=== PATIENT | male | born 2000 | race Caucasian/White ===

== ENCOUNTER 2024-04-04 16:27 | Inpatient (IN) | payer BC, SELFPAY ==
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
[2024-04-04 17:33] VITALS: BP 106/77; PULSE 89; RESP 18; TEMP 36.8; O2SAT 99; BMI 18.9
[2024-04-04 17:34] VITALS: BP 106/77; PULSE 89; RESP 16; TEMP 36.8; O2SAT 99
[2024-04-04] MEDS: Acetaminophen 500 MG Tablet 1000 MG PO (21:19)
[2024-04-05 06:00] VITALS: BP 111/66; PULSE 77; RESP 16; TEMP 36.4; O2SAT 99
[2024-04-05 06:18] VITALS: BMI 18.8
[2024-04-05] MEDS: Acetaminophen 500 MG Tablet 1000 MG PO ×3 (06:21→21:40)
[2024-04-05] MEDS: oxyCODONE 5 MG Tablet PO (06:22)
[2024-04-05 07:07] VITALS: O2SAT 99
[2024-04-05] MEDS: buPROPion (XL) 300 MG TABLET.XL PO (08:37)
[2024-04-05] MEDS: Lidocaine 5% Patch 2 PATCH TOPICAL (08:37)
--- NOTE | 2024-04-05 16:26 | CASEMGMT ---
Social Work- SW met with pt to complete initial assessment. Introduced self and role. Verified/updated contacts. Pt declines having advanced directives. Pt's goal is to return home. SW will continue to follow for DC planning. ALAINA Meyer
[2024-04-05] MEDS: Ensure Plus High Protein 120 ML LIQUID PO ×2 (17:09→21:40)
[2024-04-05 17:34] VITALS: BP 114/70; PULSE 69; RESP 16; TEMP 36.4; O2SAT 100
[2024-04-05] MEDS: Enoxaparin 30 MG/0.3 ML Syringe SC (21:41)
[2024-04-06 06:04] VITALS: BP 103/63; PULSE 75; RESP 15; TEMP 36; O2SAT 98
[2024-04-06] MEDS: oxyCODONE 5 MG Tablet PO (06:52)
[2024-04-06] MEDS: Acetaminophen 500 MG Tablet 1000 MG PO ×3 (06:52→22:11)
[2024-04-06] MEDS: Ensure Plus High Protein 120 ML LIQUID PO ×4 (08:13→22:14)
[2024-04-06] MEDS: buPROPion (XL) 300 MG TABLET.XL PO (08:14)
[2024-04-06 10:02] VITALS: O2SAT 100
[2024-04-06] MEDS: Lidocaine 5% Patch 2 PATCH TOPICAL (10:44)
[2024-04-06] MEDS: Enoxaparin 40 MG/0.4 ML Syringe SC (10:44)
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
[2024-04-06 12:17] VITALS: BP 107/76; BP 113/68; BP 120/69; PULSE 104; PULSE 125; PULSE 91
--- NOTE | 2024-04-06 13:23 | CASEMGMT ---
Social Work IDT met with patient and mother for Team meeting. Discussed patient's progress in PT/OT/SN. Educated to [facility] insurance with [employer] 04/10 and continued stay is not guaranteed with each review and has no advanced notice. Pt's goal is for pt to return home living with parents. 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 Father owns construction business and can adjust schedule. Pt's GF lives with them and can assist. Pt's aunt lives in [place] but is a retired nurse and offered to come to [facility] and assist at DC. Mother stated she has access to walkers, w/c's and hospital beds, if pt has those needs. SW will assist with any other needs at DC. Will continue to follow for DC planning. Will ReTeam weekly. NATALY FloresW
[2024-04-06 18:00] VITALS: BP 121/75; PULSE 84; RESP 17; TEMP 36.9; O2SAT 99
[2024-04-06] MEDS: APIXABAN 2.5 MG TABLET (WCH) PO (22:11)
[2024-04-07 06:00] VITALS: BP 95/62; PULSE 78; RESP 18; TEMP 36.2; O2SAT 98
[2024-04-07] MEDS: Acetaminophen 500 MG Tablet 1000 MG PO ×3 (06:50→20:43)
[2024-04-07] MEDS: oxyCODONE 5 MG Tablet PO (06:51)
[2024-04-07 07:03] LABS: Hematocrit 32.1 % (40-54); Hemoglobin 10.5 g/dL (13.0-16.5); Mean Corp Hgb Conc 32.7 g/dL (32-36); Mean Corpuscular Hgb 28.8 pg (27.0-32.0); Mean Corpuscular Volume 88.2 fL (80-94); Mean Platelet Vol. 8.2 fl (6.2-12.0); Platelet Count 423 K/mm3 (150-450); RBC Distribution Width CV 12.8 % (11.6-14.6); RBC Distribution Width SD 40.1 fl (35.1-43.9); Red Blood Count 3.64 M/mm3 (4.6-6.2); White Blood Count 7.5 K/mm3 (4.4-11.0)
[2024-04-07 07:36] LABS: ALB/GLOB Ratio 0.9 RATIO (0.9-2.4); AST(SGOT) 28 U/L (15-37); Alanine Aminotransfer ALT/SGPT 46 U/L (16-61); Albumin, Serum 3.3 g/dL (3.2-5.0); Alkaline Phosphatase 111 U/L (45-117); Anion Gap 7 (5-15); BUN 20 mg/dL (7-18); BUN/Creat Ratio 31.4 RATIO (10-20); Calcium,Total 9.5 mg/dL (8.5-10.1); Chloride 104 mmol/L (98-107); Creatinine, Serum 0.64 mg/dL (0.70-1.30); EST Glomerular Filtration Rate 165 mL/min (>60); Est Glom Filt Rate - Afr Amer 200 mL/min (>60); Globulin 3.8 g/dL (2.2-4.2); Glucose 99 mg/dL (74-106); Magnesium 2.1 mg/dL (1.6-2.6); Phosphorus 4.2 mg/dL (2.5-4.9); Potassium 4.1 mmol/L (3.5-5.1); Protein, Total 7.1 g/dL (6.4-8.2); Sodium Level 138 mmol/L (136-145)
[2024-04-07] MEDS: APIXABAN 2.5 MG TABLET (WCH) PO ×2 (08:34→20:43)
[2024-04-07] MEDS: Ensure Plus High Protein 120 ML LIQUID PO ×4 (08:34→20:43)
[2024-04-07] MEDS: Lidocaine 5% Patch 2 PATCH TOPICAL (08:35)
[2024-04-07] MEDS: buPROPion (XL) 300 MG TABLET.XL PO (08:36)
[2024-04-07 17:28] VITALS: BP 122/71; PULSE 83; RESP 17; TEMP 36.3; O2SAT 99
[2024-04-08 06:00] VITALS: BP 100/58; PULSE 79; RESP 18; TEMP 36.7; O2SAT 98
[2024-04-08] MEDS: Acetaminophen 500 MG Tablet 1000 MG PO ×3 (06:25→21:01)
[2024-04-08] MEDS: oxyCODONE 5 MG Tablet PO (06:25)
[2024-04-08] MEDS: Lidocaine 5% Patch 2 PATCH TOPICAL (08:51)
[2024-04-08] MEDS: buPROPion (XL) 300 MG TABLET.XL PO (08:52)
[2024-04-08] MEDS: Ensure Plus High Protein 120 ML LIQUID PO ×4 (08:53→21:04)
[2024-04-08] MEDS: APIXABAN 2.5 MG TABLET (WCH) PO ×2 (08:53→21:01)
[2024-04-08 09:13] VITALS: O2SAT 97
[2024-04-08 17:43] VITALS: BP 106/60; PULSE 84; RESP 16; TEMP 36.4; O2SAT 98
--- NOTE | 2024-04-09 03:08 | NURSING ---
Reviewed and agree with Bernabe HART, documentation and assessment charting.
[2024-04-09 05:17] VITALS: BP 100/63; PULSE 75; RESP 16; TEMP 37.1; O2SAT 98
[2024-04-09] MEDS: Acetaminophen 500 MG Tablet 1000 MG PO ×3 (05:19→21:08)
[2024-04-09] MEDS: oxyCODONE 5 MG Tablet PO (06:02)
[2024-04-09] MEDS: Lidocaine 5% Patch 2 PATCH TOPICAL (08:18)
[2024-04-09] MEDS: APIXABAN 2.5 MG TABLET (WCH) PO ×2 (08:22→20:38)
[2024-04-09] MEDS: buPROPion (XL) 300 MG TABLET.XL PO (08:22)
[2024-04-09] MEDS: Ensure Plus High Protein 120 ML LIQUID PO ×4 (08:23→20:39)
[2024-04-09 18:00] VITALS: BP 102/58; PULSE 80; RESP 16; TEMP 37.2; O2SAT 99
[2024-04-09 22:00] VITALS: PULSE 64; RESP 16; O2SAT 97
[2024-04-10 06:48] VITALS: BP 114/62; PULSE 74; RESP 16; TEMP 36.5; O2SAT 100
[2024-04-10] MEDS: Acetaminophen 500 MG Tablet 1000 MG PO ×3 (06:51→20:57)
[2024-04-10] MEDS: oxyCODONE 5 MG Tablet PO (06:51)
[2024-04-10] MEDS: buPROPion (XL) 300 MG TABLET.XL PO (07:55)
[2024-04-10] MEDS: Lidocaine 5% Patch 2 PATCH TOPICAL (07:55)
[2024-04-10] MEDS: APIXABAN 2.5 MG TABLET (WCH) PO ×2 (07:55→20:57)
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
[2024-04-10] MEDS: Ensure Plus High Protein 120 ML LIQUID PO ×2 (14:01→16:59)
--- NOTE | 2024-04-10 15:24 | CASEMGMT ---
Addendum entered by Linette Angela 04/11/24 10:49: [facility] confirmed they can accept pt. Original Note: Social Work SW phoned mother to discuss DC plans. Explained pt has f/u appt with surgeon on 04/18 and pt needs to be DCd to attend that appt. Pt is making good progress and IDT offered to set DC date prior to appt, or to reschedule appt. Mother agrees to set DC date and selected 04/16. Mother confirmed all DME will be in place for pt use at home. SW offered HHC vs OP therapy. Mother prefers HHC and to use the agency she works for - [facility] [employer]. Mother provided PCP - pt will be new. SW updated in EMR. family to transport at DC. No other needs noted. Will Team . LEXI sent referral via [facility] to [facility] for PT/OT Plan: DC home with family 04/16, [facility] PT/OT NATALY FloresW
[2024-04-10 18:00] VITALS: BP 106/67; PULSE 81; RESP 16; TEMP 36.8; O2SAT 99
[2024-04-11 06:00] VITALS: BP 105/58; PULSE 76; RESP 16; TEMP 37.3; O2SAT 98
[2024-04-11] MEDS: oxyCODONE 5 MG Tablet PO (06:45)
[2024-04-11] MEDS: Acetaminophen 500 MG Tablet 1000 MG PO ×3 (06:45→21:20)
[2024-04-11] MEDS: APIXABAN 2.5 MG TABLET (WCH) PO ×2 (08:28→21:20)
[2024-04-11] MEDS: Ensure Plus High Protein 120 ML LIQUID PO ×4 (08:28→21:20)
[2024-04-11] MEDS: Lidocaine 5% Patch 2 PATCH TOPICAL (08:28)
[2024-04-11] MEDS: buPROPion (XL) 300 MG TABLET.XL PO (08:28)
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
[2024-04-11 18:00] VITALS: BP 111/62; PULSE 76; RESP 15; TEMP 37.1; O2SAT 97
--- NOTE | 2024-04-12 04:13 | NURSING ---
Reviewed and agree with Tierra HART, documentation and assessment charting.
[2024-04-12 06:00] VITALS: BP 108/69; PULSE 74; RESP 16; TEMP 36.7; O2SAT 98; BMI 18.5
[2024-04-12] MEDS: oxyCODONE 5 MG Tablet PO (06:52)
[2024-04-12] MEDS: Acetaminophen 500 MG Tablet 1000 MG PO ×3 (06:52→20:32)
[2024-04-12] MEDS: buPROPion (XL) 300 MG TABLET.XL PO (10:40)
[2024-04-12] MEDS: APIXABAN 2.5 MG TABLET (WCH) PO ×2 (10:40→20:34)
[2024-04-12] MEDS: Lidocaine 5% Patch 2 PATCH TOPICAL (10:40)
[2024-04-12 17:41] VITALS: BP 105/61; PULSE 78; RESP 17; TEMP 36.9; O2SAT 98
[2024-04-12 20:00] VITALS: PULSE 78; RESP 17; O2SAT 98
[2024-04-12] MEDS: Senna/Docusate Sodium 1 Tablet 2 TABLET PO (20:33)
[2024-04-12] MEDS: Ensure Plus High Protein 120 ML LIQUID PO (20:34)
[2024-04-13] MEDS: Acetaminophen 500 MG Tablet 1000 MG PO ×3 (05:36→21:32)
[2024-04-13 05:46] VITALS: BP 97/60; PULSE 77; RESP 16; TEMP 36.6; O2SAT 98
[2024-04-13] MEDS: oxyCODONE 5 MG Tablet PO (07:04)
[2024-04-13] MEDS: Lidocaine 5% Patch 2 PATCH TOPICAL (09:34)
[2024-04-13] MEDS: APIXABAN 2.5 MG TABLET (WCH) PO ×2 (09:34→21:32)
[2024-04-13] MEDS: buPROPion (XL) 300 MG TABLET.XL PO (09:34)
--- NOTE | 2024-04-13 13:14 | CASEMGMT ---
Social Work IDT met with patient and mother for Team meeting. Discussed patient's progress in PT/OT/SN. Confirmed DC home 04/16 with [facility] PT/OT. Family has secured all needed DME. Mother to transport. No other needs noted. Linette Angela, REAL ESTATE LAWYER VP [employer]
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
[2024-04-13 17:24] VITALS: BP 105/64; PULSE 70; RESP 18; TEMP 36.6; O2SAT 99
[2024-04-13] MEDS: Ensure Plus High Protein 120 ML LIQUID PO (21:33)
[2024-04-14 06:00] VITALS: BP 103/54; PULSE 74; RESP 18; TEMP 36.7; O2SAT 99
[2024-04-14 06:21] LABS: Hematocrit 34.2 % (40-54); Mean Corp Hgb Conc 32.2 g/dL (32-36); Mean Corpuscular Hgb 29.1 pg (27.0-32.0); Mean Corpuscular Volume 90.5 fL (80-94); Mean Platelet Vol. 8.6 fl (6.2-12.0); Platelet Count 504 K/mm3 (150-450); RBC Distribution Width CV 13.1 % (11.6-14.6); Red Blood Count 3.78 M/mm3 (4.6-6.2); White Blood Count 5.7 K/mm3 (4.4-11.0)
[2024-04-14] MEDS: Acetaminophen 500 MG Tablet 1000 MG PO ×3 (06:46→21:33)
[2024-04-14] MEDS: oxyCODONE 5 MG Tablet PO (06:46)
[2024-04-14 06:57] LABS: Anion Gap 6 (5-15); BUN 19 mg/dL (7-18); BUN/Creat Ratio 22.7 RATIO (10-20); Calcium,Total 9.4 mg/dL (8.5-10.1); Chloride 105 mmol/L (98-107); Creatinine, Serum 0.84 mg/dL (0.70-1.30); EST Glomerular Filtration Rate 120 mL/min (>60); Est Glom Filt Rate - Afr Amer 146 mL/min (>60); Glucose 89 mg/dL (74-106); Potassium 4.2 mmol/L (3.5-5.1); Sodium Level 139 mmol/L (136-145)
[2024-04-14] MEDS: Ensure Plus High Protein 120 ML LIQUID PO ×4 (08:58→21:40)
[2024-04-14] MEDS: buPROPion (XL) 300 MG TABLET.XL PO (08:59)
[2024-04-14] MEDS: APIXABAN 2.5 MG TABLET (WCH) PO ×2 (08:59→21:34)
[2024-04-14] MEDS: Lidocaine 5% Patch 2 PATCH TOPICAL (08:59)
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
[2024-04-14 17:59] VITALS: BP 111/70; PULSE 80; RESP 18; TEMP 36.7; O2SAT 100
[2024-04-15 06:00] VITALS: BP 101/67; PULSE 79; RESP 18; TEMP 36.7; O2SAT 98
[2024-04-15] MEDS: Acetaminophen 500 MG Tablet 1000 MG PO ×3 (06:27→21:26)
[2024-04-15] MEDS: oxyCODONE 5 MG Tablet PO (07:05)
[2024-04-15] MEDS: APIXABAN 2.5 MG TABLET (WCH) PO ×2 (09:28→21:26)
[2024-04-15] MEDS: buPROPion (XL) 300 MG TABLET.XL PO (09:29)
[2024-04-15] MEDS: Lidocaine 5% Patch 2 PATCH TOPICAL (09:29)
[2024-04-15] MEDS: Ensure Plus High Protein 120 ML LIQUID PO ×4 (09:30→21:26)
[2024-04-15 17:29] VITALS: BP 109/58; PULSE 72; RESP 15; TEMP 37.2; O2SAT 99
[2024-04-16 06:00] VITALS: BP 104/69; PULSE 89; RESP 18; TEMP 36.9; O2SAT 98
[2024-04-16] MEDS: Acetaminophen 500 MG Tablet 1000 MG PO ×2 (06:05→13:39)
[2024-04-16] MEDS: oxyCODONE 5 MG Tablet PO ×2 (07:03→13:40)
[2024-04-16] MEDS: buPROPion (XL) 300 MG TABLET.XL PO (08:44)
[2024-04-16] MEDS: Ensure Plus High Protein 120 ML LIQUID PO ×2 (08:44→13:40)
[2024-04-16] MEDS: APIXABAN 2.5 MG TABLET (WCH) PO (08:44)
[2024-04-16] MEDS: Lidocaine 5% Patch 2 PATCH TOPICAL (08:44)
== END 2024-04-16 15:07 | disposition home health service (06) | DRG 560 ==
PROVIDERS: Admitting Provider Internal Medicine; PCP Nurse Practitioner Family; Referring Provider Internal Medicine; Visit Provider Internal Medicine
DX: S32.391D Other fracture of right ilium, subsequent encounter for fracture with routine healing (principal); D62 Acute posthemorrhagic anemia; F32.A Depression, unspecified; S32.501D Unspecified fracture of right pubis, subsequent encounter for fracture with routine healing; S73.005D Unspecified dislocation of left hip, subsequent encounter; S27.321D Contusion of lung, unilateral, subsequent encounter; S32.029D Unspecified fracture of second lumbar vertebra, subsequent encounter for fracture with routine healing; S42.001D Fracture of unspecified part of right clavicle, subsequent encounter for fracture with routine healing; S32.039D Unspecified fracture of third lumbar vertebra, subsequent encounter for fracture with routine healing; S22.019D Unspecified fracture of first thoracic vertebra, subsequent encounter for fracture with routine healing; Z79.01 Long term (current) use of anticoagulants; V86.56XD Driver of dirt bike or motor/cross bike injured in nontraffic accident, subsequent encounter; S22.43XD Multiple fractures of ribs, bilateral, subsequent encounter for fracture with routine healing; S27.0XXD Traumatic pneumothorax, subsequent encounter; S32.422D Displaced fracture of posterior wall of left acetabulum, subsequent encounter for fracture with routine healing; Z79.899 Other long term (current) drug therapy
CPT/HCPCS: 36415; 80048; 80053; 83735; 84100; 85027; 94668; 97110; 97116; 97162; 97166; 97530; 97535; 97542; 97802; 97803